=== PATIENT | male | born 2000 | race Caucasian/White ===

== ENCOUNTER 2023-08-05 18:23 | Emergency (ER) | payer MEDICAID, SELFPAY ==
[2023-08-05 18:24] VITALS: BP 127/69; PULSE 73; RESP 16; TEMP 36.1; O2SAT 100; BMI 18.8
[2023-08-05] MEDS: Fluorescein 1 MG STRIP 1 STRIP RIGHT EYE (18:42)
[2023-08-05] MEDS: Tetracaine 0.5% Ophthalmic Bottle 3 DRP RIGHT EYE (18:43)
--- NOTE | 2023-08-05 18:58 | EX.ED.VIS.EY ---
HPI History of Present Illness Chief Complaint: Eye Problem Informant: patient and parent Onset/Context/Timing Location: Right Eye Onset: Hours (2) Context: Sudden Onset Timing: Continuous Current Severity: Mild Maximum Severity: Moderate Relieved by: after flushing eye Associated Symptoms Associated Symptoms - Eyes: Foreign body sensation, Pain and Redness History of injury: Yes and Grinding injury (metal; was wearing saftey glasses, felt piece fly up beneath them) Visual correction: None Narrative Narrative: Foreign body of the right eye. He flushed his eye prior to coming here and feels a little better now. No changes in his vision. Does not wear contacts. PFSH PFS Medical History no medical history no medical history Allergy/AdvReac Type Severity Reaction Status Date / Time No Known Allergies Allergy Verified 08/05/23 18:24 Surgical History no surgical history Social History Smoking Status: Never smoker ROS ROS ED Constitutional Constitutional ED: Denies chills or fever(s) Eyes Eyes: Reports as per HPI and eye pain ENT ENT ED: Denies ear pain, rhinorrhea or sore throat Neurologic Neurologic: Denies headache(s), paresthesias or weakness EXAM Physical Exam Const Vital Signs: 08/05/23 18:24 Temperature 97 F L Temperature Source Temporal Pulse Rate 73 Respiratory Rate 16 Blood Pressure 127/69 H Blood Pressure Mean 88 Pulse Ox 100 Oxygen Delivery Method Room Air Positive well nourished and well developed General Appearance ED: well developed and NAD HEENT atraumatic; Negative for tenderness Mouth ED: Yes oral and palatal mucosa normal and Yes lips normal Mouth: oral and palatal mucosa normal and lips normal Eyes PERRL and EOMs intact bilaterally Eyes Narrative: Mild diffuse right eye bulbar and palpebral conjunctival injection without chemosis or eyelid swelling. Slit lamp exam: No foreign body seen on the cornea. Anterior chamber deep and quiet. No cell or flare. No foreign body seen on the conjunctiva. With fluorescein staining, there is no dye uptake that stays with blinking on the cornea or the conjunctiva. Upper eyelid was everted, no sign of a foreign body. Neuro oriented x3, CN's II-XII intact bilaterally and gait normal Sensorium / Orientation: alert Skin Lesions: no lesions Rashes: no rashes MDM MDM MDM Narrative Medical decision making narrative: Visual acuity performed before placing the drops in the patient's eye, 20/20 on the right and 20/20 on the left. After tetracaine the patient felt much better. Slit-lamp exam is very benign. I see no evidence of retained foreign body, I checked beneath the upper eyelid as well, and there are no areas of dye uptake on the cornea to suggest an abrasion. Anterior chambers deep and quiet negative Katarina sign. At this time I think he can go home with supportive care no antibiotics indicated, he can do comfort drops, saline or Visine as needed, if he still has symptoms after 3 to 4 days, ophthalmology referral given for follow-up. Discharge Plan Triage Chief Complaint: Eye Problem ED Provider: Mamadou Colon Dx/Rx/DC Orders Clinical Impression: Foreign body sensation, right eye Instructions: ED Corneal Foreign Body, Removed Primary Care Provider: Care Physician,No Primary Referrals: Sung Bales MD [Med Staff - Active Staff] - 3-5 Days if not improving Disposition Disposition: Home, Self Care
== END 2023-08-05 19:13 | disposition home or self-care (01) ==
PROVIDERS: Emergency Provider Emergency Medicine; Visit Provider Emergency Medicine
DX: H57.8A1 Foreign body sensation, right eye (principal); W20.8XXA Other cause of strike by thrown, projected or falling object, initial encounter
CPT/HCPCS: 99283